=== PATIENT | female | born 1985 ===

== ENCOUNTER 2017-10-04 12:42 | Emergency (ER) | payer MEDICAID ==
[2017-10-04 12:51] VITALS: BMI 33.0
[2017-10-04 12:52] VITALS: BP 125/74; PULSE 75; RESP 16; TEMP 98.1; O2SAT 98
--- NOTE | 2017-10-04 16:08 | ED PDOC ---
HPI: Chest Pain Time Seen by Provider: 10/04/17 13:11 Chief Complaint (Nursing): Chest Pain Chief Complaint (Provider): Chest Pain History Per: Patient (Chest Pain) History/Exam Limitations: no limitations Onset/Duration Of Symptoms: Days (4) Current Symptoms Are (Timing): Still Present Additional Complaint(s): 32 year old female presents to the emergency department with a complaint of a left-sided chest pain on going x4 days. Worse while moving the left shoulder. Denies shortness of breath, palpitations, and dizziness. Patient was seen yesterday at [place] emergency department and had cardiac work up with troponin tests, d dimer, and chest x-ray with normal results and discharged home. Past Medical History Reviewed: Historical Data, Nursing Documentation, Vital Signs Vital Signs: Last Vital Signs Temp 98.1 F 10/04/17 12:51 Pulse 75 10/04/17 12:51 Resp 16 10/04/17 12:51 BP 125/74 10/04/17 12:51 Pulse Ox 98 10/04/17 16:14 - Medical History PMH: Hypothyroidism Denies: Anxiety, Chronic Kidney Disease - Surgical History Surgical History: No Surg Hx - Family History Family History: States: No Known Family Hx - Home Medications Home Medications: Ambulatory Orders Medication Instructions Recorded Oseltamivir [Tamiflu] 75 mg PO BID #10 cap 10/03/17 Cyclobenzaprine [Cyclobenzaprine 10 mg PO TID #15 tab 10/04/17 HCl] Ibuprofen [Motrin] 600 mg PO Q6 #20 tab 10/04/17 - Allergies Allergies/Adverse Reactions: Allergies Allergy/AdvReac Type Severity Reaction Status Date / Time No Known Allergies Allergy Verified 10/03/17 18:50 CRISPIN Risk Score for UA/NSTEMI - CRISPIN Risk Score Age > 64: NO 3 or more CAD Risk Factors: NO Known CAD (Stenosis greater than 50%): NO Aspirin use in past 7 days: NO Severe Angina: NO EKG ST changes greater than 0.5mm: NO Positive Cardiac Marker: NO CRISPIN Score: 0 Risk %: 5% Wells Criteria for PE - Wells Criteria for Pulmonary Embolism Clinical Signs and Symptoms of DVT: No P.E is #1 Diagnosis, or Equally Likely: No Heart Rate >100: No Immobilization at least 3 days;Surgery previous 4 weeks: No Previous, objectively diagnosed PE or DVT: No Hemoptysis: No Malignancy w/treatment within 6 months, or palliative: No Total Score: 0 Review of Systems ROS Statement: Except As Marked, All Systems Reviewed And Found Negative (As per HPI, otherwise negative) Cardiovascular: Positive for: Chest Pain (Left sided). Negative for: Palpitations Respiratory: Negative for: Shortness of Breath Neurological: Negative for: Dizziness Physical Exam - Reviewed Nursing Documentation Reviewed: Yes Vital Signs Reviewed: Yes - Physical Exam Appears: Positive for: No Acute Distress Head Exam: Positive for: NORMAL INSPECTION Skin: Positive for: Normal Color, Warm, Dry Cardiovascular/Chest: Positive for: Regular Rate, Rhythm. Negative for: Murmur Respiratory: Positive for: Normal Breath Sounds. Negative for: Accessory Muscle Use, Respiratory Distress Gastrointestinal/Abdominal: Positive for: Normal Exam, Soft. Negative for: Tenderness Extremity: Positive for: Normal ROM, Other (reproducible with left shoulder movement with pain). Negative for: Pedal Edema Neurologic/Psych: Positive for: Alert, Oriented (x3) - ECG O2 Sat by Pulse Oximetry: 98 (RA) Pulse Ox Interpretation: Normal Medical Decision Making Medical Decision Making: Time: 1401 Initial Impression: Chest pain most likely musculoskeletal Initial Plan: --EKG --Troponin I --CBC w. diff --Reevaluation --EKG: Normal Sinus. Normal QRS. No ST Changes. Rate at 75 bpm. Time: 1500 --Reviewed all labs from yesterday and repeated Troponin which was normal. --Medically stable for discharge. Time: 1520 --Patient ready for discharged and given Rx for Cyclobenzaprine HCl 10 mg and Motrin 600 mg. Clinical Impression: Chest pain Scribe Attestation: Documented by Blaire Edwards, acting as a scribe for Thelma Regan MD. Provider Scribe Attestation: All medical record entries made by the Scribe were at my direction and personally dictated by me. I have reviewed the chart and agree that the record accurately reflects my personal performance of the history, physical exam, medical decision making, and the department course for this patient. I have also personally directed, reviewed, and agree with the discharge instructions and disposition. Disposition - Clinical Impression Clinical Impression: Chest pain - Patient ED Disposition Is Patient to be Admitted: No Counseled Patient/Family Regarding: Studies Performed, Diagnosis, Need For Followup, Rx Given - Disposition Referrals: [facility] [Outside] Disposition: Routine/Home Disposition Time: 15:20 Condition: GOOD Additional Instructions: Take your medications as instructed. Follow up with your PCP in 2-3 days. Prescriptions: Cyclobenzaprine [Cyclobenzaprine HCl] 10 mg PO TID #15 tab Ibuprofen [Motrin] 600 mg PO Q6 #20 tab Instructions: Chest Pain
--- NOTE | 2017-10-05 10:39 | CARD ---
APPROVED REPORT EKG Measurement Heart [id number] <Conclusion> Normal sinus rhythm with sinus arrhythmia Normal ECG
== END 2017-10-04 16:00 | disposition home or self-care (01) ==
LOC: H.ER 12:42
DX: R07.9 Chest pain, unspecified (principal); E03.9 Hypothyroidism, unspecified